=== PATIENT | female | born 1950 | race Caucasian/White ===

== ENCOUNTER → 2016-05-23 | Outpatient (CLI) | payer MEDICARE ==
[~2016-05-23] MED LIST: ASPI81TA2 PO; ATOR40TA64; CLIN-89 PO; FEXO-118 PO; FOLI-40 PO; HYDR1TAB82 PO; INSU300I; LEVO50TA11 PO; LOSA25TA34; MAGN400C PO; METF-206 PO; METH2.5T6 PO; NYSTATIN TOP; POTA20TA10 PO; SITA50TA; TORS20TA4 PO; [UNRECOGNIZED DRUG - CODE]
== END ==
LOC: NWCC 09:36
PROVIDERS: ATTEND Internal Medicine
DX: S81.801A Unspecified open wound, right lower leg, initial encounter (principal); W22.8XXS Striking against or struck by other objects, sequela; R60.0 Localized edema; I87.2 Venous insufficiency (chronic) (peripheral)
CPT/HCPCS: 11042; G0463

== ENCOUNTER → 2016-05-27 | Outpatient (CLI) | payer MEDICARE | LOC: NWCC 14:19 | PROVIDERS: ATTEND Internal Medicine | DX: S81.801A Unspecified open wound, right lower leg, initial encounter (principal); W22.8XXS Striking against or struck by other objects, sequela; I87.2 Venous insufficiency (chronic) (peripheral); R60.0 Localized edema | CPT/HCPCS: 97605; A6237; G0463 ==

== ENCOUNTER → 2016-05-30 | Outpatient (CLI) | payer MEDICARE | LOC: NWCC 08:57 | PROVIDERS: ATTEND Internal Medicine | DX: S81.801A Unspecified open wound, right lower leg, initial encounter (principal); W22.8XXS Striking against or struck by other objects, sequela; R60.0 Localized edema; I87.2 Venous insufficiency (chronic) (peripheral) | CPT/HCPCS: 97605; A6237; G0463 ==

== ENCOUNTER → 2016-06-03 | Outpatient (CLI) | payer MEDICARE | LOC: NWCC 14:21 | PROVIDERS: ATTEND Internal Medicine | DX: S81.801A Unspecified open wound, right lower leg, initial encounter (principal); X58.XXXS Exposure to other specified factors, sequela; I87.2 Venous insufficiency (chronic) (peripheral); R60.0 Localized edema | CPT/HCPCS: 97605; A6237; G0463 ==

== ENCOUNTER → 2016-06-06 | Outpatient (CLI) | payer MEDICARE ==
[~2016-06-06] MED LIST changes: +CALMOSEPTINE OINTMENT 3.5 G PACKET TOP ONE; +SALINE FLUSH 10ml SYRINGE IVF ONE
== END ==
LOC: NWCC 08:52
PROVIDERS: ATTEND Internal Medicine
DX: S81.801A Unspecified open wound, right lower leg, initial encounter (principal); W22.8XXS Striking against or struck by other objects, sequela; R60.0 Localized edema; I87.2 Venous insufficiency (chronic) (peripheral)
CPT/HCPCS: A6209; A9270; G0463

== ENCOUNTER → 2016-06-13 | Outpatient (CLI) | payer MEDICARE ==
[~2016-06-13] MED LIST changes: -CALMOSEPTINE OINTMENT 3.5 G PACKET TOP ONE; -SALINE FLUSH 10ml SYRINGE IVF ONE; +SILVER NITRATE APPLICATOR TOP ONE
== END ==
LOC: NWCC 11:21
PROVIDERS: ATTEND Internal Medicine
DX: S81.801A Unspecified open wound, right lower leg, initial encounter (principal); W22.8XXS Striking against or struck by other objects, sequela; I87.2 Venous insufficiency (chronic) (peripheral); R60.0 Localized edema
CPT/HCPCS: 11042; 97605; A6237; G0463

== ENCOUNTER → 2016-06-17 | Outpatient (CLI) | payer MEDICARE ==
[~2016-06-17] MED LIST changes: -SILVER NITRATE APPLICATOR TOP ONE
== END ==
LOC: NWCC 07:57
PROVIDERS: ATTEND Internal Medicine
DX: S81.801A Unspecified open wound, right lower leg, initial encounter (principal); W22.8XXS Striking against or struck by other objects, sequela; I87.2 Venous insufficiency (chronic) (peripheral); R60.0 Localized edema; B96.89 Other specified bacterial agents as the cause of diseases classified elsewhere; L53.9 Erythematous condition, unspecified
CPT/HCPCS: 11042; 87070; 87075; 87076; 87147; 87181; 87205; A6209; A6210; G0463

== ENCOUNTER → 2016-06-24 | Outpatient (CLI) | payer MEDICARE | LOC: NWCC 14:17 | PROVIDERS: ATTEND Internal Medicine | DX: S81.801A Unspecified open wound, right lower leg, initial encounter (principal); R60.0 Localized edema; I87.2 Venous insufficiency (chronic) (peripheral); W22.8XXS Striking against or struck by other objects, sequela | CPT/HCPCS: 11042; 97605; A6237; G0463 ==

== ENCOUNTER → 2016-06-27 | Outpatient (CLI) | payer MEDICARE | LOC: NWCC 13:32 | PROVIDERS: ATTEND Internal Medicine | DX: S81.801A Unspecified open wound, right lower leg, initial encounter (principal); W22.8XXS Striking against or struck by other objects, sequela; I87.2 Venous insufficiency (chronic) (peripheral); R60.0 Localized edema | CPT/HCPCS: 97605; A6237; G0463 ==

== ENCOUNTER → 2016-07-01 | Outpatient (CLI) | payer MEDICARE | LOC: NWCC 14:29 | PROVIDERS: ATTEND Internal Medicine | DX: S81.801A Unspecified open wound, right lower leg, initial encounter (principal); I87.2 Venous insufficiency (chronic) (peripheral); R60.0 Localized edema; W22.8XXS Striking against or struck by other objects, sequela; B95.7 Other staphylococcus as the cause of diseases classified elsewhere | CPT/HCPCS: 11042; 97605; A6021; A6212; G0463 ==

== ENCOUNTER → 2016-07-04 | Outpatient (CLI) | payer MEDICARE | LOC: NWCC 11:32 | PROVIDERS: ATTEND Internal Medicine | DX: S81.801A Unspecified open wound, right lower leg, initial encounter (principal); W22.8XXS Striking against or struck by other objects, sequela; R60.0 Localized edema; I87.2 Venous insufficiency (chronic) (peripheral) | CPT/HCPCS: 97605; A6237; G0463 ==

== ENCOUNTER → 2016-07-08 | Outpatient (CLI) | payer MEDICARE | LOC: NWCC 14:33 | PROVIDERS: ATTEND Internal Medicine | DX: S81.801A Unspecified open wound, right lower leg, initial encounter (principal); W22.8XXS Striking against or struck by other objects, sequela; I87.2 Venous insufficiency (chronic) (peripheral); R60.0 Localized edema | CPT/HCPCS: 11042; A6237; G0463 ==

== ENCOUNTER → 2016-07-11 | Outpatient (CLI) | payer MEDICARE | LOC: NWCC 13:19 | PROVIDERS: ATTEND Internal Medicine | DX: S81.801A Unspecified open wound, right lower leg, initial encounter (principal); W22.8XXS Striking against or struck by other objects, sequela; R60.0 Localized edema; I87.2 Venous insufficiency (chronic) (peripheral) | CPT/HCPCS: 97605; A6237; G0463 ==

== ENCOUNTER → 2016-07-15 | Outpatient (CLI) | payer MEDICARE | LOC: NWCC 14:34 | PROVIDERS: ATTEND Internal Medicine | DX: S81.801A Unspecified open wound, right lower leg, initial encounter (principal); W22.8XXS Striking against or struck by other objects, sequela; R60.0 Localized edema; I87.2 Venous insufficiency (chronic) (peripheral) | CPT/HCPCS: 11042; A6209; G0463 ==